=== PATIENT | female | born 1980 | race Hispanic/Latino ===

== ENCOUNTER 2024-01-15 06:58 | Day surgery (SDC) | payer BC ==
[2024-01-13 09:47] VITALS: BP 114/73; PULSE 62; RESP 17
[2024-01-13 10:01] LABS: BASOPHILS # (AUTO) 0.03 K/uL (0.00-0.20); BASOPHILS % (AUTO) 0.4 % (0.0-5.0); EOSINOPHILS # (AUTO) 0.38 K/uL (0.00-0.70); EOSINOPHILS % (AUTO) 5.5 % (0.0-8.0); HEMATOCRIT 42.5 % (36-48); IMMATURE GRANULOCYTE ABSOLUTE 0.03 K/uL (0-1); LYMPHOCYTES # (AUTO) 1.6 K/uL (1.0-4.8); LYMPHOCYTES % (AUTO) 23.3 % (21.0-51.0); MEAN CORPUSCULAR HEMOGLOBIN 28.7 pg (27.0-33.0); MEAN CORPUSCULAR HGB CONC 32.7 g/dL (32.0-36.0); MEAN CORPUSCULAR VOLUME 87.8 fL (79-99); MONOCYTES # (AUTO) 0.5 K/uL (0.1-1.0); MONOCYTES % (AUTO) 6.9 % (3.0-13.0); NEUTROPHILS # (AUTO) 4.4 K/uL (1.8-7.7); NEUTROPHILS % (AUTO) 63.5 % (40.0-77.0); PLATELET COUNT (AUTO) 322 K/uL (130-400); RED BLOOD CELL COUNT(AUTO) 4.84 MIL/uL (4.00-5.50); RED CELL DISTRIBUTION WIDTH 12.9 % (11.0-15.5); WHITE BLOOD COUNT (AUTO) 6.9 K/uL (4.8-10.8)
[2024-01-13 10:13] LABS: CREATININE 0.8 mg/dL (0.5-1.0); INR <= 0.93 (0.85-1.15); POTASSIUM 4.2 mmol/L (3.5-5.1); PROTHROMBIN TIME 10.3 SEC (9.6-11.6)
[2024-01-13 10:14] LABS: PARTIAL THROMBOPLASTIN TIME 27.2 SEC (26.3-35.5)
[2024-01-15] VITALS (7 sets, daily range): BP systolic 101–120; BP diastolic 61–74; PULSE 60–86; RESP 14–17
[~2024-01-15] VITALS: Ht 167.6 cm; Wt 70.3 kg
[~2024-01-15 06:58] MED LIST: VERA180C2 PO
[2024-01-15] MEDS: 0.9%NACL 1000ML 1,000 ML IV ONE (08:08)
[2024-01-15] MEDS ORDERED: MIDAZOLAM HCL 1 MG/ML 2ML VIAL ONE (08:31)
[2024-01-15] MEDS ORDERED: LIDOCAINE HCL 400MG/20ML VIAL ONE (08:31)
[2024-01-15] MEDS ORDERED: MEPERIDINE-PF 25 MG/ML SYG ONE (08:31)
[2024-01-15] MEDS ORDERED: HEPARIN 10,000 UNIT/10ML (1,000 UNIT/ML) VIAL ONE (08:31)
[2024-01-15] MEDS ORDERED: ISOPROTERENOL HCL 0.2 MG/ML AMP/VIAL/BAG ONE ×2 (08:38→10:42)
[2024-01-15] MEDS ORDERED: VERAPAMIL HCL 80 MG TABLET PO SCH (14:00)
[2024-01-15] MEDS: VERAPAMIL HCL 80 MG TABLET PO ONE (14:04)
== END 2024-01-15 14:49 | disposition home or self-care (01) ==
LOC: DAH 06:58
PROVIDERS: ATTEND Internal Medicine Cardiovascular Disease
DX: I49.3 Ventricular premature depolarization (principal); Z82.49 Family history of ischemic heart disease and other diseases of the circulatory system; Z83.3 Family history of diabetes mellitus; Z72.89 Other problems related to lifestyle
CPT/HCPCS: 80048; 84703; 85025; 85610; 85730; 36415; 93005; 93654; 93623; C1894 ×5; C1732 ×2; C1893; A4649 ×2; J3490 ×3; J7030; J1644 ×2; J2250; J2175; A4215; A4222; A4221; A4663; A4216; A4606; A4223 ×3; 99156; 99157